=== PATIENT | male | born 1940 | race African-American/Black ===

== ENCOUNTER 2018-11-05 16:04 | Emergency (ER) | payer OTHER ==
[~2018-11-05] VITALS: Ht 188 cm; Wt 90.0 kg
[~2018-11-05 16:04] MED LIST: ATROPINE SULFATE 1MG/10ML SYR ONE; CALCIUM CHLORIDE 1GM/10ML SYR IV ONE; EPINEPHRINE 0.1MG/ML (1:10,000) 10ML SYR ONE; SODIUM BICARBONATE 8.4% MEQ/ML 50ML VIAL IV ONE
[2018-11-05 16:09] VITALS: BP 0/0
[2018-11-05] MEDS ORDERED: DOPAMINE 400MG/250ML PREMIX 250 ML IV ONE (16:23)
[2018-11-05] MEDS ORDERED: EPINEPHRINE 0.1MG/ML (1:10,000) 10ML SYR ONE (16:25)
== END 2018-11-05 16:23 | disposition expired ==
LOC: ER 16:04
DX: I46.9 Cardiac arrest, cause unspecified (principal); E16.2 Hypoglycemia, unspecified; Z85.46 Personal history of malignant neoplasm of prostate
CPT/HCPCS: 31500; 36556; 92950; 99285; J0461; J1265; J3490